=== PATIENT | female | born 1995 | race Caucasian/White ===

== ENCOUNTER 2018-01-22 19:13 | Emergency (ER) | payer BC ==
[~2018-01-22] VITALS: Ht 170.2 cm; Wt 59.8 kg
[2018-01-22 19:24] VITALS: TEMP 37.1; Ht 170.2 cm; Wt 59.8 kg
[2018-01-22] MEDS ORDERED: SODIUM CHLORIDE 0.9% 1000ML 1,000 ML IV STA (19:57)
[2018-01-22 20:27] LABS: BASO % 0.1 %; BASO ABS # 0.02 K/uL (0-0.2); HEMOGLOBIN 11.6 g/dL (12.0-16.0); IG# 0.06 K/uL (0.00-0.02); LYMPH % 4.9 %; LYMPH ABS # 0.89 K/uL (1.2-3.4); MEAN CELL VOLUME 87.2 fL (80-100); MEAN CORPUSCULAR HEMOGLOBIN 29.7 pg (25-34); MEAN CORPUSCULAR HGB CONC 34.1 g/dl (32-36); MEAN PLATELET VOLUME 9.2 fL (7.4-10.4); MONO % 5.1 %; MONO ABS # 0.92 K/uL (0.11-0.59); NEUT % 89.6 %; NEUT ABS # 16.13 K/uL (1.4-6.5); PLATELET COUNT 231 K/uL (130-400); RED CELL DISTRIBUTION WIDTH CV 13.8 % (11.5-14.5); RED CELL DISTRIBUTION WIDTH SD 43.9 fL (36.4-46.3); WHITE BLOOD COUNT 18.02 K/uL (4.8-10.8)
[2018-01-22 20:52] LABS: ALBUMIN 3.9 gm/dl (3.4-5.0); CALCIUM 9.1 mg/dl (8.5-10.1); CREATININE 0.75 mg/dl (0.60-1.20); POTASSIUM 3.5 mmol/L (3.5-5.1)
[2018-01-22 20:55] LABS: TOTAL PROTEIN 8.1 gm/dl (6.4-8.2)
[2018-01-22] MEDS ORDERED: ACETAMINOPHEN 325 MG TAB PO STA (21:24)
--- NOTE | 2018-01-22 22:01 | DIAGNOSTIC IMAGING REPORT ---
SOFT TISSUE NECK WITHOUT HISTORY: 22 years-old Female R throat pain, severe, [address] leukocytosis, retro? Acute right-sided stroke pain with leukocytosis COMPARISON: None available TECHNIQUE: Multiple axial CT images of the soft tissues of the neck were obtained without the use of IV contrast. A dose lowering technique was used consistent with the principals of SAMY. FINDINGS: Study is limited without the use of IV contrast. Evaluation of the oral pharynx is limited secondary to streak artifact from dental amalgam hardware. Mild prominence of the bilateral adenoid tonsils. There is prominence of the bilateral palatine tonsils, right greater than left without drainable fluid collection or retropharyngeal collections identified. Prominent level 2 lymph nodes are seen bilaterally measuring up to 1.0 cm on the right. This is superficial to the marker placed on the neck. Thyroid is homogeneous. No significant narrowing of the airway. The epiglottis and aryepiglottic folds are unremarkable. The glottis is within normal limits. When apices are generally clear. Soft tissues are otherwise unremarkable. Orbits are symmetric. No acute intracranial abnormality identified. Mastoid air cells are clear. Paranasal sinuses are also generally clear. The bones appear intact. There is mild straightening of the normal cervical lordosis. IMPRESSION: 1. Limited study without the use of IV contrast. There is prominence of the bilateral palatine tonsils, right greater than left suggesting tonsillitis without drainable fluid collection identified. No evidence of peritonsillar or retropharyngeal abscess. 2. Mildly prominent right greater than left level II lymph nodes are likely reactive. The above report was generated using voice recognition software. It may contain grammatical, syntax or spelling errors. Electronically signed by: Jn Corona M.D. 01/22/2018 10:00 PM Dictated Date/Time: 01/22/2018 9:54 PM
[2018-01-22] MEDS ORDERED: AMOXICIL/CLAVU 875MG HOME PACK PO STA (22:36)
[2018-01-22] MEDS ORDERED: AMOX875T PO (22:39)
[2018-01-22] MEDS ORDERED: PRED20TA2 PO (22:39)
--- NOTE | 2018-01-22 22:40 | EMERGENCY ROOM VISIT NOTE ---
History First contact with patient: 19:33 Chief Complaint: SORETHROAT Stated Complaint: THROAT SWOLLEN, TONSILITIS History of Present Illness The patient is a 22 year old female who presents to the Emergency Room via private vehicle accompanied by friends referred by LUMI Mask with complaints of "throat swollen, tonsillitis". The patient states that she has been experiencing a sore throat since last night. She was seen at [facility] just prior to her visit here at the emergency department where she underwent a strep test which was negative, and was given dexamethasone 10 mg oral suspension/ spray. She was referred here secondary to her physical exam finding in the throat. She states that since last night she has been experiencing a hoarse voice, odynophagia, dysphagia and notes minimal eating. She denies any trismus or drooling. She denies any shortness of breath, chest pain, cough, rhinorrhea or nasal congestion. She states that she also vomited last night from back pain. She notes pain in the left ear since last night as well. She denies any tenderness, hearing loss, vertigo, abdominal pain, constipation, diarrhea, symptoms. She denies any recent sexual activity. Review of Systems A complete 6-point Review of Systems was discussed with the patient, with pertinent positives and negatives listed in the History of Present Illness. All remaining Review of Systems questions can be considered negative unless otherwise specified. Past Medical/Surgical History Noncontributory. Family History Noncontributory. Social History Smoking Status: Never Smoker Patient is a [employer] student and lives locally. Current/Historical Medications Scheduled Amoxicillin & Pot Clavulanate (Augmentin 875-125 mg), 1 TAB PO BID Prednisone (Prednisone Tab), 1 TAB PO DAILY Physical Exam Vital Signs Date Time Temp Pulse Resp B/P (MAP) Pulse Ox O2 Delivery O2 Flow Rate FiO2 01/22/18 23:04 85 18 112/67 98 01/22/18 19:24 37.1 109 16 118/84 99 Room Air 01/22/18 19:24 99 Room Air Physical Exam VITAL SIGNS - Vital signs and nursing notes were reviewed. Stable. Afebrile. Slightly tachycardic at 109 bpm. GENERAL -22-year-old female appearing her stated age who is in no acute distress. She is nontoxic in appearance. Communicates well with provider and answers questions appropriately. SKIN - Without rashes. No meningeal or petechial rash. HEAD - NC/AT. EYES - PERRL with EOMI bilaterally. Sclera anicteric. EARS - No deformities of external structures noted on gross examination bilaterally. No pain elicited with palpation of the tragus bilaterally. External auditory canals without discharge or otorrhea. Tympanic membranes pearly barbosa without retraction or bulging. No fluid or purulent material visualized behind the TM. Handle of malleus, umbo, cone of light, pars tensa/ flaccid all easily visualized. NOSE - Midline and without cyanosis. No epistaxis or purulent drainage noted. Septum midline without deviation or septal hematoma noted. MOUTH/OROPHARYNX - Without perioral cyanosis. Buccal mucosa pink and moist and without leukoplakia. Tongue is midline as is uvula. Uvula unremarkable. There is 2+ right sided tonsillar hypertrophy as well as 1+ left-sided tonsillar hypertrophy. On the right side there is some hyperemia of the mucosa closest to the uvula superiorly. There is no bleeding. No hemorrhagic bullae. Airway is widely patent. No trismus. No drooling. LUNGS - Chest wall symmetric without accessory muscle use, intercostals retractions, or central cyanosis. Normal vesicular breath sounds CTA B/L. No wheezes, rales, or rhonchi appreciated. CARDIAC - RRR with S1/S2. No murmur, rubs, or gallops appreciated. Medical Decision & Procedures ER Provider Diagnostic Interpretation: SOFT TISSUE NECK WITHOUT HISTORY: 22 years-old Female R throat pain, severe, [address] leukocytosis, retro? Acute right-sided stroke pain with leukocytosis COMPARISON: None available TECHNIQUE: Multiple axial CT images of the soft tissues of the neck were obtained without the use of IV contrast. A dose lowering technique was used consistent with the principals of ALARA. FINDINGS: Study is limited without the use of IV contrast. Evaluation of the oral pharynx is limited secondary to streak artifact from dental amalgam hardware. Mild prominence of the bilateral adenoid tonsils. There is prominence of the bilateral palatine tonsils, right greater than left without drainable fluid collection or retropharyngeal collections identified. Prominent level 2 lymph nodes are seen bilaterally measuring up to 1.0 cm on the right. This is superficial to the marker placed on the neck. Thyroid is homogeneous. No significant narrowing of the airway. The epiglottis and aryepiglottic folds are unremarkable. The glottis is within normal limits. When apices are generally clear. Soft tissues are otherwise unremarkable. Orbits are symmetric. No acute intracranial abnormality identified. Mastoid air cells are clear. Paranasal sinuses are also generally clear. The bones appear intact. There is mild straightening of the normal cervical lordosis. IMPRESSION: 1. Limited study without the use of IV contrast. There is prominence of the bilateral palatine tonsils, right greater than left suggesting tonsillitis without drainable fluid collection identified. No evidence of peritonsillar or retropharyngeal abscess. 2. Mildly prominent right greater than left level II lymph nodes are likely reactive. The above report was generated using voice recognition software. It may contain grammatical, syntax or spelling errors. Electronically signed by: Jn Corona M.D. 01/22/2018 10:00 PM Dictated Date/Time: 01/22/2018 9:54 PM Laboratory Results 01/22/18 20:10 Red Blood Count 3.90, Mean Corpuscular Volume 87.2, Mean Corpuscular Hemoglobin 29.7, Mean Corpuscular Hemoglobin Concent 34.1, Mean Platelet Volume 9.2, Neutrophils (%) (Auto) 89.6, Lymphocytes (%) (Auto) 4.9, Monocytes (%) (Auto) 5.1, Eosinophils (%) (Auto) 0.0, Basophils (%) (Auto) 0.1, Neutrophils # (Auto) 16.13, Lymphocytes # (Auto) 0.89, Monocytes # (Auto) 0.92, Eosinophils # (Auto) 0.00, Basophils # (Auto) 0.02 01/22/18 20:10 Test 01/22/18 20:10 White Blood Count 18.02 K/uL (4.8-10.8) Red Blood Count 3.90 M/uL (4.2-5.4) Hemoglobin 11.6 g/dL (12.0-16.0) Hematocrit 34.0 % (37-47) Mean Corpuscular Volume 87.2 fL (80-100) Mean Corpuscular Hemoglobin 29.7 pg (25-34) Mean Corpuscular Hemoglobin Concent 34.1 g/dl (32-36) Platelet Count 231 K/uL (130-400) Mean Platelet Volume 9.2 fL (7.4-10.4) Neutrophils (%) (Auto) 89.6 % Lymphocytes (%) (Auto) 4.9 % Monocytes (%) (Auto) 5.1 % Eosinophils (%) (Auto) 0.0 % Basophils (%) (Auto) 0.1 % Neutrophils # (Auto) 16.13 K/uL (1.4-6.5) Lymphocytes # (Auto) 0.89 K/uL (1.2-3.4) Monocytes # (Auto) 0.92 K/uL (0.11-0.59) Eosinophils # (Auto) 0.00 K/uL (0-0.5) Basophils # (Auto) 0.02 K/uL (0-0.2) RDW Standard Deviation 43.9 fL (36.4-46.3) RDW Coefficient of Variation 13.8 % (11.5-14.5) Immature Granulocyte % (Auto) 0.3 % Immature Granulocyte # (Auto) 0.06 K/uL (0.00-0.02) Anion Gap 10.0 mmol/L (3-11) Est Creatinine Clear Calc Drug Dose 112.0 ml/min Estimated GFR () 132.1 Estimated GFR (Non- 113.9 BUN/Creatinine Ratio 15.4 (10-20) Calcium Level 9.1 mg/dl (8.5-10.1) Total Bilirubin 1.6 mg/dl (0.2-1) Aspartate Amino Transf (AST/SGOT) 18 U/L (15-37) Alanine Aminotransferase (ALT/SGPT) 16 U/L (12-78) Alkaline Phosphatase 85 U/L (45-117) Total Protein 8.1 gm/dl (6.4-8.2) Albumin 3.9 gm/dl (3.4-5.0) Globulin 4.2 gm/dl (2.5-4.0) Albumin/Globulin Ratio 0.9 (0.9-2) Monoscreen NEG (NEG) Medications Administered Medications (Trade) Dose Ordered Sig/Onesimo Route Start Time Stop Time Status Last Admin Dose Admin Sodium Chloride 1,000 ml @ 999 mls/hr Q1H1M STAT IV 01/22/18 19:57 01/22/18 20:57 DC 01/22/18 20:20 999 MLS/HR Acetaminophen (Tylenol Tab) 650 mg NOW STAT PO 01/22/18 21:24 01/22/18 21:25 DC 01/22/18 21:34 650 MG Amoxicillin/ Clavulanate Potassium (Augmentin 875MG [facility]) [facility] PO 01/22/18 22:36 01/22/18 22:37 DC 01/22/18 23:04 1 [facility] Medical Decision Patient was seen and evaluated as above in room D9. She presents to us today referred by edwina hamm with a sore throat 1 day. She is nontoxic on exam. Review was performed of nursing notes and vital signs. After obtaining a thorough history and physical examination the above work up was performed. I did elect to obtain IV access, and provide her intravenous fluids noting that she was not able to tolerate any today and she is tachycardic upon her arrival. The airway is widely patent. I suspect that her difficulty with swallowing is secondary to pain. There is no obstruction in the airway or pharynx region. Uvula is midline. The patient was experiencing quite some discomfort and there is leukocytosis near 18,000. There is anemia. No concerning metabolic abnormality. [place] testing negative. I did not retest her for strep given that with her clinical presentation I will likely treat for such given her presentation of possible streptococcal pharyngitis and discomfort in the event that this could be bacterial. Because of how much pain she was experiencing and she started taking ibuprofen and was given Tylenol here I did elect to obtain a CT scan of her neck to rule out any posterior or clinically occult abscess collection in the neck. This was negative. Results as above. Tonsillitis is suspected. She will be treated with Augmentin, as well as low- dose prednisone to help with tonsillar hypertrophy causing her pain. She appears stable to follow in the outpatient setting, and is to return with worsening of which she was thoroughly educated upon worrisome symptoms which to return. I did answer all of the patient's questions as well as questions from those who were in the room with her regarding her condition. The patient was educated upon management, had questions answered prior to discharge, and was discharged home in good condition. In the evaluation and treatment of this patient the following differential diagnoses were entertained: Streptococcal pharyngitis, mononucleosis, viral pharyngitis, peritonsillar abscess, retropharyngeal abscess, among others. Impression Primary Impression: Acute tonsillitis Additional Impression: Anemia Departure Information Dispostion Home / Self-Care Condition GOOD Prescriptions Prednisone (Prednisone Tab) 20 Mg Tab 1 TAB PO DAILY for 5 Days, #5 TAB Prov: Ruddy Man PA-C 01/22/18 Amoxicillin & Pot Clavulanate (Augmentin 875-125 mg) 1 Tab Tab 1 TAB PO BID for 9 Days, #18 TAB Prov: Ruddy Man PA-C 01/22/18 Referrals [facility] (PCP) Patient Instructions My [facility] Additional Instructions You were seen in the emergency department for your sore throat and tonsillitis You were prescribed Augmentin to be taken every 12 hours. This is an antibiotic. All antibiotics have the potential to cause diarrhea. Stop this medication and contact a medical provider if you were to develop any significant adverse side effects including: wheezing, shortness of breath, passing out, vomiting, or a diffuse rash. Always take antibiotics as directed and COMPLETE the ENTIRE course regardless of the improvement of your symptoms. You have been prescribed Prednisone 20 mg to be taken orally once a day for the next 5 days. This is an anti-inflammatory medicine to be used to help minimize your symptoms. You should take the COMPLETE course of the medication. For pain and fever control, you can use the following [id number] medicines (if >12 yo): - Regular strength (325mg/tab) Tylenol (acetaminophen) 2 tabs every 4-6 hours as needed. Do not exceed 12 tablets in a 24 hour period. Avoid taking more than 3 grams (3000 mg) of Tylenol per day. This includes any other sources of acetaminophen you may take on a regular basis. - Regular strength (200 mg/tab) Advil (ibuprofen) 1-2 tabs every 4-6 hours as needed. Do not exceed a dose of 3200 mg per day. - For best results, alternate dosing of Tylenol and Advil. In addition to your prescribed medications, you can also use the following home remedies: - Warm salt-water gargles 3 times per day can soothe your throat and help to fight infection. - Warm tea with honey can soothe your throat. Return to the emergency department if your symptoms persist or worsen over the next 2-3 days despite treatment course outlined above. Return to the emergency department if you develop the following symptoms of: inability to swallow solids , liquids, or drool; excessive wheezing or inability to catch your breath; or intractable fever or pain. Follow up with your primary care provider in 2-3 days from today's emergency department visit. Problem Qualifiers
[2018-01-22 23:04] VITALS: BP 112/67; PULSE 85; O2SAT 98
== END 2018-01-22 23:05 | disposition home or self-care (01) ==
LOC: C.EDB 19:14 → C.EDD 23:05
DX: J03.90 Acute tonsillitis, unspecified (principal); D64.9 Anemia, unspecified; D72.829 Elevated white blood cell count, unspecified; R00.0 Tachycardia, unspecified; M54.9 Dorsalgia, unspecified; H92.02 Otalgia, left ear